=== PATIENT | female | born 1950 | race Caucasian/White ===

== ENCOUNTER 2022-07-18 05:49 | Day surgery (SDC) | payer MEDICARE, SELFPAY ==
[2022-07-18] MEDS: Lactated Ringers 1,000 ML 15 ML IV ×2 (06:20→09:30)
[2022-07-18 06:37] VITALS: BP 129/56; PULSE 71; RESP 18; TEMP 36.2; O2SAT 97; BMI 33.9
--- NOTE | 2022-07-18 07:47 | PCM.DC.SUM ---
Providers Primary Care Physician: MEDHAT ELLIS MD Reason For Visit: RT TYMPANOPLASTY WITH HARVEST GRAFT Medications at Discharge Home Medications biotin 10,000 mcg chewable tablet (Hair, Skin and Nails (biotin)) 10,000 mcg PO DAILY 07/11/22 cholecalciferol (vitamin D3) 25 mcg (1,000 unit) tablet (Vitamin D3) 25 mcg PO DAILY 07/11/22 cyanocobalamin-liver extract tablet 1 tab PO DAILY 07/11/22 estradiol 1.25 gram/actuation (0.06%) transdermal gel pump 1 pump transdermal DAILY 07/11/22 lactobacillus combination no.4 3 billion cell capsule (Probiotic) 3,000 mmu cells PO DAILY 07/11/22 liothyronine 5 mcg tablet 1.5 mcg PO DAILY 07/11/22 multivitamin 1 cap PO DAILY 07/11/22 omega-3 fatty acids 1,000 mg PO DAILY 07/11/22 prasterone (dhea) 50 mg tablet (DHEA) 50 mg PO DAILY 07/11/22 progesterone micronized 200 mg capsule 200 mg PO QHS 07/11/22 Weight / BMI Weight Weight: 84.1 kg Body Mass Index (BMI) 33.9 D/C Instructions Discharge Diet: No restrictions Discharge Activity: Return to Normal Activity Additional Activity Instructions: Dry ear precautions Additional Instructions: Remove and discard dressing tomorrow morning. Change cotton ball as needed. Please Follow Up With: Yonis Shah MD When: 2-3 weeks Meaningful Use Info Meaningful Use Diagnoses (Choose all that apply): None applicable Discharge Plan Admission Attending Provider: Yonis Shah Primary Care Provider: MEDHAT ELLIS Discharge Orders/Prescriptions Prescriptions: No Action liothyronine 5 mcg Tablet 1.5 mcg PO DAILY Label Comments: 1.5 GRAINS PER PATIENT progesterone micronized 200 mg Capsule 200 mg PO QHS multivitamin Capsule 1 cap PO DAILY Fish Oil Capsule 1,000 mg PO DAILY Vitamin R42-Cprie Tablet 1 tab PO DAILY estradiol 1.25 gram/actuation Gel In Metered-Dose Pump 1 pump TRANSDERMAL DAILY cholecalciferol (vitamin D3) [Vitamin D3] 25 mcg (1,000 unit) Tablet 25 mcg PO DAILY Probiotic 3 billion cell Capsule 3,000 mmu cells PO DAILY Rx Instructions: administer with a meal DHEA 50 mg Tablet 50 mg PO DAILY Hair, Skin and Nails (biotin) 10,000 mcg Tablet,Chewable 10,000 mcg PO DAILY Referrals / Follow Up: MEDHAT ELLIS MD [Primary Care Provider] - Disposition Disposition (needs filled in before D/C Order can be placed): Home, Self Care
[2022-07-18] MEDS: Lidocaine 2% /Epi 1:100 (20ml) 20 ML VIAL (08:18)
[2022-07-18] MEDS: Ciprofloxacin 0.3% 2.5ml Bottle 1 DRP (08:30)
[2022-07-18] MEDS: Epinephrine (1 mg/ml) 1 MG/ML VIAL (08:30)
[2022-07-18] MEDS: Neomycin/Bacitracin/Polymyxin Ointment 1 APPLIC (09:13)
[2022-07-18] MEDS: Bacitracin 500 UNITS/GM PACKET (09:14)
[2022-07-18 10:15] VITALS: BP 128/65; BP 129/56; PULSE 68; RESP 16; TEMP 36.4; O2SAT 98
[2022-07-18 10:30] VITALS: BP 129/56; BP 132/63; PULSE 75; RESP 16; O2SAT 91
[2022-07-18 10:44] VITALS: BP 129/56; BP 139/63; PULSE 73; RESP 16; O2SAT 93
[2022-07-18 11:01] VITALS: BP 122/62; BP 129/56; PULSE 71; RESP 16; TEMP 36.6; O2SAT 96
--- NOTE | 2022-07-18 12:34 | OP.PCM_ITS ---
Report of Operation Date of Procedure: 07/18/22 Pre-Operative Diagnosis: right tympanic membrane perforation Post-Operative Diagnosis: same and ossicular discontinuity Surgery/Procedure Performed:: Right tympanoplasty with ossicular reconstruction [place] tragal cartilage graft Surgeon: Yonis Shah Type of Anesthesia: General Anesthesiologist: Yusuf Samuels Estimated Blood Loss (mL): minimal Description of Procedure: The Patient was taken to the operating room on 07/18/2022.? She was placed in supine position on the operating table.? She was given sufficient general endotracheal anesthesia.? The table was turned 90 degrees in a counterclockwise fashion.? The right ear was prepped and draped sterilely.? 2% lidocaine with epinephrine was injected into the tragus and meatus.? Next a speculum was used and the? patient's right external auditory canal and the external auditory canal skin was injected with 2% lidocaine with epinephrine.? Next I made an incision at the edge of the tragal cartilage with a 15 blade.? A plane was established sharply on both the medial and lateral aspects of the tragal cartilage.? The tragal cartilage was then harvested sharply with scissors.? This was dried on a cutting block.? I then irrigated the tragal harvest site with saline.? Hemostasis was achieved with bipolar cautery.? The incision was then closed with interrupted 5-0 fast-absorbing gut.? I placed a quilting suture to close the space as well.? Next a speculum was bernabe was used.? I rimmed the perforation with a Degroot pick.? The rim was removed with a cup forceps.? I then made an incision from 12:00 to 6:00 posteriorly in the external auditory canal skin with a round [place] blade.? The tympanomeatal flap was elevated sharply.? Upon inspection of the incudostapedial joint, it was clear that this was not a normal joint.? Upon wiggling the malleus there was very little movement of the stapes.? I removed mucosa from both the incus and the stapes with a Degroot pick.? Hemostasis was then achieved with topical adrenaline Gelfoam.? This was then removed.? Otomimix was mixed per the corporate compliance director's recommendations.? I then placed this between the incus and stapes.? I allowed approximately 15 minutes percent of time.? At this point I wiggled the malleus and had excellent movement of the incus and stapes through the newly constructed joint. I then placed Cipro impregnated Gelfoam into the middle ear space.? The tragal cartilage was cut to the appropriate size and placed in underlay fashion beneath the perforation.? The tympanomeatal flap was redraped.? I then made sure that the cartilage was tucked circumferentially underneath the perforation.? the external auditory canal was filled with antibiotic ointment.? A Green dressing was then applied.? The patient then awoken about the recovery room in stable condition.? Blood loss minimal,replacement none,sponge needle and instrument counts correct were correct at the end of the procedure.
== END 2022-07-18 12:13 | disposition home or self-care (01) ==
LOC: SDC 05:51 → AC 05:52
PROVIDERS: PCP Family Medicine; Referring Provider Family Medicine; Visit Provider Otolaryngology
PROC: (CPT 69632; principal; 2022-07-18 07:00)
DX: H74.20 Discontinuity and dislocation of ear ossicles, unspecified ear (principal); H72.01 Central perforation of tympanic membrane, right ear
CPT/HCPCS: 69632; 00120; J7120; J2405